=== PATIENT | male | born 1980 | race Caucasian/White ===

== ENCOUNTER 2021-09-29 12:50 | Emergency (ER) | payer BC, SELFPAY ==
--- NOTE | ~2021-09-29 | XR_ITS ---
XR hand RT min 3V 09/29/2021 14:18 Indication: Right hand pain Procedure: 3 views right hand Comparison: No prior studies for comparison. Findings: There is dislocation of the third digit at the PIP joint. No underlying fracture identified . There is overlapping of the phalanges. Mild soft tissue swelling. Impression: 1: Dislocation of the right third finger at the PIP joint with overlapping phalanges. Reviewed, dictated and finalized at location A. Impression: 1: Dislocation of the right third finger at the PIP joint with overlapping phal anges.
--- NOTE | ~2021-09-29 | XR_ITS ---
XR hand LT min 3V 09/29/2021 14:18 Indication: Left hand pain Procedure: 3 views left hand Comparison: No prior studies for comparison. Findings: There are mildly displaced avulsion fractures involving the dorsal base of the third middle phalanx. No other fracture. Anatomic alignment otherwise. No foreign bodies. Impression: 1: Mildly displaced avulsion fracture fragments dorsal base left third middle phalanx. Reviewed, dictated and finalized at location A. Impression: 1: Mildly displaced avulsion fracture fragments dorsal base left third middle p halanx.
[2021-09-29 13:35] VITALS: BP 141/94; PULSE 78; RESP 20; TEMP 36.4; O2SAT 98
[2021-09-29] MEDS: KETOROLAC (*BKC) 60 MG/2 ML VIAL IM (14:07)
[2021-09-29] MEDS: MORPHINE SULFATE (*CRX) 4 MG/ML INJ IM (15:38)
--- NOTE | 2021-09-29 16:25 | ED.UPPEXIN ---
HPI - Extremity Injury (Upper) General Chief Complaint: Extremity Injury, Upper Stated Complaint: left and right dislocated middle fingers Time Seen by Provider: 09/29/21 12:54 Source: patient, family and RN notes reviewed Mode of arrival: ambulatory Limitations: no limitations History of Present Illness complaint: injury to: left, right and finger Onset (ago): hour(s) (2) Other Extremity Injury: Bilateral: fingers Other injuries: none Place: outdoors Severity: moderate Severity scale (1-10): 7 Relieving factors: immobilization Exacerbating factors: movement of extremity Context: injury Associated symptoms: denies other symptoms Related Data Home Medications Medication Instructions Recorded Confirmed No Home Medications 09/29/21 09/29/21 Allergies Allergy/AdvReac Type Severity Reaction Status Date / Time Sulfonamides Allergy Intermediate Unknown Uncoded 09/29/21 14:12 Review of Systems Review of Systems: All systems reviewed & are unremarkable except as noted in HPI and below Constitutional: Constitutional: Reports no additional constitutional complaints Eyes: Eyes: Reports no additional eye complaints ENT: Reports system reviewed and no additional complaints, except as documented Cardiovascular: Cardiovascular: Reports no additional cardiovascular complaints Respiratory: Respiratory: Reports no additional respiratory complaints Gastrointestinal: Gastrointestinal: Reports no additional gastrointestinal complaints Musculoskeletal: Comments: bilateral middle finger injuries Integumentary/Breasts: Skin/Breast: Reports system reviewed and no additional complaints, except as docu Neurologic: Reports system reviewed and no additional complaints, except as documented Psychiatric: Psychiatric: Reports no additional psychiatric complaints Endocrine: Endocrine: Reports no additional endocrine complaints Hematologic/Lymphatic: Hematologic/Lymphatic: Reports no additional hematologic/lymphatic complaints Allergic/Immunologic: Allergic/Immunologic: Reports no additional allergic/immunologic complaints PMFSH Past Medical History Medical History Finger deformity, acquired Social History Social History Smoking status: Never smoker Exam Const: General: healthy appearing and no acute distress Nutritional Appearance: well nourished Orientation/consciousness: patient oriented x3 Limitations: no limitations HENMT: Head: normal to inspection Ears: external ears normal, TM's normal bilaterally and EAC's normal General nose exam: Normal external nose present and Normal nares present Face and sinus: normal facial exam and sinuses nontender Mouth: Yes Normal oral and palatal mucosa present and Yes moist mucous membranes Teeth and gingiva: dentition normal Throat: posterior oropharynx normal Eyes: Conjunctivae: conjunctivae normal Pupils: Equal, round and reactive pupils present EOM: EOMs intact bilaterally Neck: Neck: normal visual inspection, no lymphadenopathy and no meningeal signs Chest: Chest palpation & inspection: normal inspection of the chest Resp: Effort & Inspection: normal respiratory effort Auscultation: clear to auscultation bilaterally Cardio: Rate: regular rate Rhythm: regular rhythm GI: GI Palp: Yes Soft to palpation and No Tenderness to palpation present (GI) Auscultation: normal bowel sounds : General: Yes bladder normal to palpation and Yes no CVA tenderness Back/Spine/Pelvis: Back: no CVA tenderness Skin: General skin exam: normal color Rashes: no rashes Wounds: no wounds Neuro: General: patient oriented x3, moves all extremities, no meningeal signs, no focal motor deficits and CN's II-XI intact bilaterally Cranial nerves: Yes Equal, round and reactive pupils present and Yes Nystagmus not present Speech: normal speech Gait exam (Neuro): Normal gait pre
[2021-09-29 16:35] VITALS: BP 155/110; PULSE 71; RESP 20; TEMP 36.6; O2SAT 97
== END 2021-09-29 16:38 | disposition short-term general hospital (02) ==
PROVIDERS: Emergency Provider Emergency Medicine; PCP Family Medicine
DX: S63.252A Unspecified dislocation of right middle finger, initial encounter (principal); S62.603A Fracture of unspecified phalanx of left middle finger, initial encounter for closed fracture
CPT/HCPCS: 26770; 73130; 96372; 99284; 99285; J1885; J2270

== ENCOUNTER 2022-06-11 01:38 | Emergency (ER) | payer BC, SELFPAY ==
[2022-06-11] VITALS (45 sets, daily range): BP systolic 120–163; BP diastolic 72–106; PULSE 69–120; RESP 15–23; TEMP 36.4–36.9; O2SAT 76–99
--- NOTE | ~2022-06-11 | XR_ITS ---
Portable chest x-ray Comparison: 08/11/2014 Clinical History: Chest pain Findings: Lungs are clear, without focal consolidation or pleural effusion. Cardiomediastinal silho uette is stable. Bones and soft tissues are unremarkable. Impression: Normal chest. Reviewed, dictated and finalized at location . Impression: Normal chest.
--- NOTE | 2022-06-11 01:45 | ECG_ITS ---
Measurements Intervals [place] Rate: 91 P: 39 [place]: 182 QRS: 23 QRSD: 111 T: 12 QT: 343 QTc: 424 Interpretive Statements SINUS RHYTHM MINIMAL Q WAVES- INFERIOR LEADS BASELINE ARTIFACT- I, II, AVR, AVL, AVF, V1-V2, V6 BORDERLINE ECG NO PREVIOUS ECG AVAILABLE FOR COMPARISON Electronically Signed On 06-11-2022 6:45:58 CDT by Vaughn Davila D.O.
[2022-06-11] MEDS: ASPIRIN 81 MG CHEWABLE TABLET 324 MG PO (01:55)
[2022-06-11] MEDS: NITROGLYCERIN SL 0.4 MG TABLET SUBLINGUAL ×2 (01:56→02:58)
[2022-06-11 02:10] LABS: Basophils Absolute Auto 0.09 K/mm3 (0.00-0.10); Basophils Percent Auto 0.9 % (0.0-1.0); Eosinophils Absolute Auto 0.37 K/mm3 (0.02-0.50); Eosinophils Percent Auto 3.8 % (1.0-6.0); Hematocrit 43.2 % (40.0-54.0); Immature Granulocyte Absolute 0.03 K/mm3 (0.00-0.00); Immature Granulocyte Percent A 0.3 % (0.0-0.0); Lymphocytes Absolute Auto 2.81 K/mm3 (1.10-4.50); Lymphocytes Percent Auto 28.9 % (18.0-42.0); Mean Corpuscular HGB Conc 34.7 g/dL (32.0-36.0); Mean Corpuscular Hemoglobin 32.5 pg (27.0-31.0); Mean Corpuscular Volume 93.5 fL (78.0-102.0); Mean Platelet Volume 11.1 fl (8.7-11.0); Monocytes Absolute Auto 0.72 K/mm3 (0.10-0.90); Monocytes Percent Auto 7.4 % (2.0-11.0); Neutrophils Absolute Auto 5.7 K/mm3 (1.7-7.2); Neutrophils Percent Auto 58.7 % (50.0-70.0); Platelet Count Result 247 K/mm3 (150-420); Red Blood Count 4.62 M/mm3 (4.70-6.10); Red Cell Distribution Width 11.9 % (11.6-14.4); White Blood Count 9.7 K/mm3 (4.8-10.8)
[2022-06-11 02:21] LABS: D Dimer 0.19 mg/L (0.19-0.50); INR 0.9; Partial Thromboplastin Time 27.9 SEC (23.90-30.70); Prothrombin Time 9.9 Seconds (9.50-12.10)
[2022-06-11 02:26] LABS: Alanine Aminotransferase 44 U/L (16-63); Albumin Level 3.9 g/dL (3.4-5.0); Alkaline Phosphatase 85 U/L (46-116); Anion Gap 10 mmol/L (8-16); Aspartate Amino Transferase 18 U/L (15-37); Bilirubin,Total 0.3 mg/dL (0.00-1.00); Blood Urea Nitrogen 16 mg/dL (7-18); Calcium 8.8 mg/dL (8.5-10.1); Carbon Dioxide 28 mmol/L (21-32); Chloride 106 mmol/L (98-108); Estimated CRCL calculation 127 ml/min; Estimated Glomerular Filt Rate > 60; Glucose 115 mg/dL (70-99); Lipase 51 U/L (16-77); NT Pro B Type Natriuretic Pept 16 pg/mL (0-125); Osmolality Calculated 300 mOsm/kg (285-295); Potassium 3.9 mmol/L (3.5-5.1); Sodium 144 mmol/L (136-145); Total Protein 7.6 g/dL (6.4-8.2); Troponin I 4.4 ng/L (0.00-60.4)
[2022-06-11] MEDS: ENOXAPARIN 120 MG/0.8 ML SYRINGE 113 MG SUB-Q (02:30)
--- NOTE | 2022-06-11 02:41 | ED.CHESTPAIN ---
HPI - Chest Pain General Chief Complaint: Chest Pain Stated Complaint: chest pain Time Seen by Provider: 06/11/22 01:51 Source: patient Mode of arrival: ambulatory Limitations: no limitations History of Present Illness HPI narrative: Patient is a 42-year-old white male complains of waking up with left chest and left shoulder and elbow pain an hour prior to admission associated with diaphoresis without nausea vomiting shortness of breath And nothing seems to make it better or worse there is no change with movement. Rates as a 10/10 in pain no history of heart disease or venous thromboembolism or lung disease. He smokes drinks alcohol 2-3 beers day denies illicit drug use. Works as a construction millwright. he has had a cough last week and I upper respiratory infection denies any nausea vomiting diarrhea constipation sputum production or hemoptysis problems eating or drinking lumps or bumps bleeding or bruising rash or itching or any other complaints. He has not taken anything for the pain. He takes no medicine. Allergies sulfa Related Data Home Medications Medication Instructions Recorded Confirmed No Home Medications 09/29/21 06/11/22 Allergies Allergy/AdvReac Type Severity Reaction Status Date / Time Sulfonamides Allergy Intermediate Unknown Uncoded 11/08/21 10:07 Review of Systems Constitutional: Constitutional: Reports no additional constitutional complaints Eyes: Eyes: Reports no additional eye complaints ENT: Reports system reviewed and no additional complaints, except as documented Cardiovascular: Cardiovascular: Reports as per HPI, Reports no additional cardiovascular complaints, Reports chest pain and Denies rapid heart rate Respiratory: Respiratory: Reports as per HPI and Reports no additional respiratory complaints Gastrointestinal: Gastrointestinal: Reports as per HPI and Reports no additional gastrointestinal complaints Musculoskeletal: Musculoskeletal: Reports no additional musculoskeletal complaints Integumentary/Breasts: Skin/Breast: Reports system reviewed and no additional complaints, except as docu Neurologic: Reports system reviewed and no additional complaints, except as documented Psychiatric: Psychiatric: Reports no additional psychiatric complaints Endocrine: Endocrine: Reports no additional endocrine complaints Hematologic/Lymphatic: Hematologic/Lymphatic: Reports no additional hematologic/lymphatic complaints PMFSH Past Medical History Medical History Finger deformity, acquired Social History Social History Smoking status: Never smoker Exam Narrative: White male no apparent distress.? Head normocephalic, atraumatic.? Eyes conjunctiva pink sclera nonicteric.? Extraocular movements are intact.? Ears externally normal.? Oropharynx is clear with moist mucous membranes without exudates.? Neck is supple nontender no lymphadenopathy. ?Back is nontender.? Lungs are clear.? Heart is regular rate and rhythm without murmurs gallops or rubs.? Chest wall is nontender.? Abdomen is soft and nontender no hepatosplenomegaly or masses no CVA tenderness no abdominal bruits. ?Extremities no cyanosis clubbing or edema. ?Skin is warm and dry without rashes or lesions.? Neurological patient is alert and oriented x4.? Motor and sensory grossly intact.? Gait is normal. Course Vital Signs Vital signs: Vital Signs Temperature 36.6 C 06/11/22 01:40 Pulse Rate 103 H 06/11/22 01:40 Respiratory Rate 20 06/11/22 01:40 Blood Pressure 150/98 H 06/11/22 01:40 Pulse Oximetry 99 06/11/22 01:40 Oxygen Delivery Room Air 06/11/22 01:40 Temperature 36.6 C 06/11/22 01:40 Pulse Rate 103 H 06/11/22 01:40 Respiratory Rate 20 06/11/22 01:40 Blood Pressure 128/82 06/11/22 02:22 Pulse Oximetry 99 06/11/22 01:40 Oxygen Delivery Room Air 06/11/22 01:40 Transf
--- NOTE | 2022-06-11 02:58 | PC.NURSE ---
ERp in to speak c pt about test results. Explained need for timed trop draw. Pt resting comfortably, rates c/p at 3. Pt given another Nitro 0.4mg SL tab per order, VSS.
--- NOTE | 2022-06-11 03:22 | PC.NURSE ---
Pt resting c monitor in place, VSS. lights dimmed, POC explained to pt. and s.o.
[2022-06-11 03:26] LABS: Appearance Urine Clear (Clear); Bilirubin Urine Negative (Negative); Blood Urine Negative (Negative); Color Urine Yellow (Yellow); Glucose Urine UA Negative (Negative); Ketones Urine Negative (Negative); Leukocyte Esterase Ur Negative LEU/UL (Negative); Nitrate Urine Negative (Negative); Protein Urine Trace (Negative); Specific Grav Ur >= 1.030 (1.010-1.020); Urobilinogen Urine 0.2 mg/dL (0.2-1.0)
[2022-06-11 03:31] LABS: Add Urine Microscopic? YES; Bacteria Urine Trace /hpf; Mucus Urine Few /lpf; RBC Urine 0-2 /hpf (0-2); WBC Urine 0-3 /hpf (0-3)
[2022-06-11 03:32] LABS: Amphetamine Screen Urine Negative (Negative); Barbiturate Screen Urine Negative (Negative); Benzodiazepines Screen Urine Negative (Negative); Cannabinoid Screen Urine Positive (Negative); Cocaine Screen Urine Negative (Negative); Methadone Screen Urine Negative (Negative); Opiate Screen Urine Negative (Negative); Phencyclidine Screen Urine Negative (Negative)
--- NOTE | 2022-06-11 04:30 | PC.NURSE ---
Pt resting, monitor shows NSR, VSS, no c/o. Call calderón at side.
--- NOTE | 2022-06-11 05:24 | PC.NURSE ---
Continuing to monitor, pts. S.O. at bedside, awaiting troponin results, pt remains essentially pain free and c/o only mild discomfort. VSS.
[2022-06-11 05:39] LABS: Troponin I 4.5 ng/L (0.00-60.4)
--- NOTE | 2022-06-11 05:50 | PC.NURSE ---
Pt now c/o increasing chest discomfort and pain in his Lt arm again. G-friend back in room at bedside. Noted elevated HR when Dr discussing normal test and troponin results. Order obtained for ativan.
--- NOTE | 2022-06-11 05:54 | ECG_ITS ---
Measurements Intervals [place] Rate: 109 P: 33 [place]: 171 QRS: 71 QRSD: 111 T: 3 QT: 328 QTc: 442 Interpretive Statements SINUS TACHYCARDIA CONSIDER INFERIOR INFARCT, AGE INDETERMINATE BASELINE WANDER- I, II, III ABNORMAL ECG COMPARED TO ECG 06/11/2022 01:47:10 SINUS TACHYCARDIA NOW PRESENT Electronically Signed On 06-11-2022 6:46:35 CDT by Vaughn Davila D.O.
[2022-06-11] MEDS: LORazepam INJ (*CRX) 2 MG/ML VIAL 1 MG IV PUSH (05:59)
[2022-06-11] MEDS: MORPHINE SULFATE (*CRX) 4 MG/ML INJ IV PUSH (06:12)
--- NOTE | 2022-06-11 07:10 | PC.NURSE ---
Report given to LUIS E Gambino. Pt resting c g-friend at side. VSS. Pt resting, POC for transfer discussed c pt and signed transfer form. Continuing to monitor. Call calderón at pt side.
--- NOTE | 2022-06-11 08:32 | PC.NURSE ---
0830 pt loaded to ems cot. states chest pain with movement to ems cot. ems notified will treat as needed enroute to [facility].
--- NOTE | 2022-06-11 08:35 | PC.NURSE ---
update to eugenia andrews enroumanan to [facility]
== END 2022-06-11 08:34 | disposition short-term general hospital (02) ==
PROVIDERS: Emergency Provider Emergency Medicine
DX: R07.9 Chest pain, unspecified (principal); R06.02 Shortness of breath; M25.512 Pain in left shoulder; M25.522 Pain in left elbow
CPT/HCPCS: 36415; 71045; 80053; 80307; 81001; 83690; 83880; 84484; 85025; 85380; 85610; 85730; 93005; 96372; 96374; 96375; 99285; A9270; J1650; J2060; J2270

== ENCOUNTER 2023-07-15 08:26 | Outpatient (CLI) | payer BC, SELFPAY ==
[2023-07-15 09:44] LABS: Basophils Percent Auto 1.6 % (0.0-1.0); Eosinophils Absolute Auto 0.38 K/mm3 (0.02-0.50); Eosinophils Percent Auto 6.1 % (1.0-6.0); Hematocrit 44.6 % (40.0-54.0); Hemoglobin 14.9 g/dL (14.0-18.0); Immature Granulocyte Absolute 0.02 K/mm3 (0.00-0.00); Immature Granulocyte Percent A 0.3 % (0.0-0.0); Lymphocytes Absolute Auto 1.61 K/mm3 (1.10-4.50); Lymphocytes Percent Auto 25.9 % (18.0-42.0); Mean Corpuscular HGB Conc 33.4 g/dL (32-36); Mean Corpuscular Volume 92.7 fL (78.0-102.0); Mean Platelet Volume 11.1 fl (8.7-11.0); Monocytes Absolute Auto 0.35 K/mm3 (0.10-0.90); Monocytes Percent Auto 5.6 % (2.0-11.0); Neutrophils Absolute Auto 3.75 K/mm3 (1.70-7.20); Neutrophils Percent Auto 60.5 % (50.0-70.0); Platelet Count Result 240 K/mm3 (150-420); Red Blood Count 4.81 M/mm3 (4.70-6.10); White Blood Count 6.2 K/mm3 (4.8-10.8)
[2023-07-15 10:48] LABS: Alanine Aminotransferase 46 U/L (16-63); Albumin Level 3.9 g/dL (3.4-5.0); Alkaline Phosphatase 81 U/L (46-116); Anion Gap 8 mmol/L (4-12); Aspartate Amino Transferase 17 U/L (15-37); Bilirubin,Total 0.9 mg/dL (0.00-1.00); Blood Urea Nitrogen 15 mg/dL (7-18); Calcium 8.5 mg/dL (8.5-10.1); Carbon Dioxide 30 mmol/L (21-32); Chloride 103 mmol/L (98-108); Cholesterol 212 mg/dL (0-200); Estimated Glomerular Filt Rate > 60; Glucose 99 mg/dL (70-99); HDL Direct 38 mg/dL (40-60); LDL Cholesterol Calculated 154 mg/dL (<130); Osmolality Calculated 292 mOsm/kg (285-295); Potassium 4.4 mmol/L (3.5-5.1); Sodium 141 mmol/L (136-145); Total Protein 7.2 g/dL (6.4-8.2); Triglycerides 101 mg/dL (0-150)
== END 2023-07-15 08:27 | disposition home or self-care (01) ==
LOC: CHSLAB 08:28
PROVIDERS: PCP Family Medicine; Visit Provider Family Medicine
DX: Z00.00 Encounter for general adult medical examination without abnormal findings (principal)
CPT/HCPCS: 36415; 80053; 80061; 85025

== ENCOUNTER 2023-07-17 07:16 | Outpatient (CLI) | payer BC, SELFPAY ==
--- NOTE | ~2023-07-17 | CT_ITS ---
EXAMINATION: CT soft tissue neck w con DATE: 07/17/2023 07:54 INDICATION: Hypertrophy of tonsils. Dysphagia. TECHNIQUE: Computed tomography (CT) of the neck was performed with 75 mL Omnipaque-350 intravenous co ntrast. Automated exposure control and iterative reconstruction technique were employed. The dose-lora gth product was 495.38 mGy-cm. COMPARISON: None FINDINGS: Left palatine tonsil is enlarged. No abscess. There is a 19 x 13 mm high left internal jugu lar chain lymph node. The cervical carotid arteries are normal. There is mild cervical spondylosis. IMPRESSION: 1. Enlarged left palatine tonsil, which may be malignancy or inflammation. 2. Mildly enlarged high left internal jugular chain lymph node. Reviewed, dictated and finalized at location A.
== END 2023-07-17 07:17 | disposition home or self-care (01) ==
LOC: CHSIMG 07:17
PROVIDERS: PCP Family Medicine; Visit Provider Family Medicine
DX: R04.2 Hemoptysis (principal); J35.1 Hypertrophy of tonsils; R59.0 Localized enlarged lymph nodes
CPT/HCPCS: 70491; Q9967